=== PATIENT | male | born 1955 | race Caucasian/White ===

== ENCOUNTER → 2016-08-23 | Outpatient (CLI) | payer BC ==
--- NOTE | 2016-08-23 08:56 | US ---
EXAMINATION TYPE: US prostate transrectal DATE OF EXAM: 08/23/2016 COMPARISON: Prior prostate ultrasound July 12, 2009 CLINICAL HISTORY: R97.20 elevated PSA. This examination was performed using the transrectal probe. EXAM MEASUREMENTS: Gland Size: 4.4 x 2.5 x 5.3cm Volume: 29.9 Predicted PSA: 4.6 Actual PSA (if available):3.6 No evident mass, normal appearing prostate. Seminal vesicles are felt within normal limits on initial images. Prostate gland is upper limits of n ormal in size on current study much less prominent in size versus prior exam. Prostate gland is overa ll heterogeneous in appearance without hypoechoic nodule identified. IMPRESSION: Prostate gland is upper limits of normal in size and significantly smaller versus prior study, it remains heterogeneous in appearance without discrete nodule identified.
== END | disposition home or self-care (01) ==
LOC: RADUSMAIN 08:10
PROVIDERS: ATTEND Nurse Practitioner Family
DX: R97.20 Elevated prostate specific antigen [PSA] (principal)
CPT/HCPCS: 76872

== ENCOUNTER → 2017-03-14 | Outpatient (CLI) | payer BC ==
--- NOTE | 2017-03-14 09:54 | US ---
EXAMINATION TYPE: US prostate transrectal DATE OF EXAM: 03/14/2017 COMPARISON: US 08/23/2016 CLINICAL HISTORY: R97.20 Elevated PSA. This examination was performed using the transrectal probe. EXAM MEASUREMENTS: Gland Size: 5.7 x 2.7 x 5.4cm Volume: 42.6 Predicted PSA: 5.1 Actual PSA (if available):4.6 No masses seen. No suspicious lesions identified. Significant interval glandular enlargement identifi ed. Seminal vesicles are symmetric. IMPRESSION: No suspicious lesions identified. Significant interval glandular enlargement identified Predicted PSA = volume x 0.12 ng/ml Calculated Volume = 0.5236 x L x W x H
== END | disposition home or self-care (01) ==
LOC: RADUSMAIN 07:57
PROVIDERS: ATTEND Family Medicine
DX: R59.0 Localized enlarged lymph nodes (principal)
CPT/HCPCS: 76872

== ENCOUNTER → 2017-05-08 | Outpatient (CLI) | payer BC ==
--- NOTE | 2017-05-09 17:12 | ECHOF ---
Referral Reason:R01.1 CARDIAC MURMUR MEASUREMENTS -------- HEIGHT: 185.4 cm WEIGHT: 116.1 kg BP: 164/96 RVIDd: 3.4 cm (< 3.3) IVSd: 1.1 cm (0.6 - 1.1) LVIDd: 4.2 cm (3.9 - 5.3) LVPWd: 1.3 cm (0.6 - 1.1) IVSs: 1.6 cm LVIDs: 2.4 cm LVPWs: 1.5 cm LAESV Index (A-L): 15.79 ml/m Ao Diam: 2.6 cm (2.0 - 3.7) AV Cusp: 1.5 cm (1.5 - 2.6) LA Diam: 2.7 cm (2.7 - 3.8) MV EXCURSION: 19.436 mm (> 18.000) MV EF SLOPE: 53 mm/s (70 - 150) EPSS: 0.2 cm MV E Marquis: 0.76 m/s MV DecT: 346 ms MV A Marquis: 0.92 m/s MV E/A Ratio: 0.83 AV maxP.45 mmHg AV meanP.79 mmHg RAP: 5.00 mmHg RVSP: 19.42 mmHg FINDINGS -------- Sinus rhythm. This was a technically adequate study. The left ventricular size is normal. There is mild concentric left ventricular hypertrophy. Overa ll left ventricular systolic function is normal with, an EF between 55 - 60 %. The right ventricle is mildly enlarged. Normal LA size by volume 22+/-6 ml/m2. The right atrium is normal in size. There is mild aortic valve sclerosis. There is no evidence of aortic regurgitation. There is no e vidence of aortic stenosis. The mitral valve leaflets are mildly thickened. There is trace to mild mitral regurgitation. Mild tricuspid regurgitation present. Right ventricular systolic pressure is normal at < 35 mmHg. There is no evidence of pulmonary hypertension. Trace/mild (physiologic) pulmonic regurgitation. The aortic root size is normal. Normal inferior vena cava with normal inspiratory collapse consistent with estimated right atrial pre ssure of 5 mmHg. There is a small pericardial effusion is located near the right ventricle. CONCLUSIONS -------- 1. Sinus rhythm. 2. This was a technically adequate study. 3. The left ventricular size is normal. 4. There is mild concentric left ventricular hypertrophy. 5. Overall left ventricular systolic function is normal with, an EF between 55 - 60 %. 6. The right ventricle is mildly enlarged. 7. Normal LA size by volume 22+/-6 ml/m2. 8. There is mild aortic valve sclerosis. 9. The mitral valve leaflets are mildly thickened. 10. There is trace to mild mitral regurgitation. 11. Mild tricuspid regurgitation present. 12. Right ventricular systolic pressure is normal at < 35 mmHg. 13. There is no evidence of pulmonary hypertension. 14. Trace/mild (physiologic) pulmonic regurgitation. 15. The aortic root size is normal. 16. There is a small pericardial effusion is located near the right ventricle. AIR EXPORT LOGISTICS MANAGER: Daniel Aguilera RDCS
== END | disposition home or self-care (01) ==
LOC: RADECHMAIN 15:49
PROVIDERS: ATTEND Family Medicine
DX: I07.1 Rheumatic tricuspid insufficiency (principal); I31.3 Pericardial effusion (noninflammatory); I34.8 Other nonrheumatic mitral valve disorders; R01.1 Cardiac murmur, unspecified
CPT/HCPCS: 93306

== ENCOUNTER 2018-03-11 06:55 | Day surgery (SDC) | payer BC, MEDICARE ==
[2018-03-06 13:37] VITALS: BMI 34.0
[~2018-03-11 06:55] MED LIST: LACTATED RINGERS 1,000 ML IV SCH
[2018-03-11 07:22] VITALS: TEMP 97.7
[2018-03-11] MEDS ORDERED: LACTATED RINGERS 1,000 ML IV ONE (07:23)
[2018-03-11 07:28] LABS: Glucose,Whole Blood 142 mg/dL (75-99)
[2018-03-11] MEDS ORDERED: PROPOFOL 10 MG/ML 20 ML VIAL IV ONE (07:57)
--- NOTE | 2018-03-11 08:32 | P.PCN ---
Date of Procedure: 03/11/18 Procedure(s) Performed: Procedure: Colonoscopy and biopsy. Preoperative diagnosis: Screening for neoplasia, patient has history of polyps. Postoperative diagnosis: 1. Few isolated aphthous ulcers in the distal sigmoid of uncertain clinical significance biopsied. 2. Less than ideal preparation, otherwise, exam to the cecum within normal limits. Preparation: HalfLytely prep. Sedation: Was provided by anesthesia. Brief clinical history: The patient is a 63-year-old male who is scheduled for this evaluation because of history of polyps. His last exam was in August 2012 and that was within normal limits. The patient denied any abdominal complaints , bleeding or anemia. Procedure: With the patient on his left lateral decubitus position and after informed consent and adequate sedation, the perianal area was inspected and it did not show any fissures or fistulas. There were no masses felt on digital rectal examination. The Olympus CFH 190L video colonoscope was then inserted in the rectum in the usual fashion and advanced to the cecum. Unfortunately, the preparation was less than ideal and there was thick fecal secretions and fecal debris that could not be washed totally. No obvious polyps or tumors were seen. The mucosa appeared healthy. There were few isolated aphthous ulcers in the distal sigmoid of uncertain clinical significance. Couple of those were biopsied. I then retroflexed the endoscope in the rectum before the endoscope was withdrawn. The patient tolerated the procedure well. Plan: The patient was reassured. Will await pathology results. I anticipate repeating this exam in 5 years or sooner depending on his course and biopsy results. He will follow up with you as planned.
[2018-03-11 08:35] VITALS: RESP 16
[2018-03-11 08:59] VITALS: BP 128/86; PULSE 78
== END 2018-03-11 09:14 | disposition home or self-care (01) ==
LOC: ORWHC2ENDO 06:55
DX: Z12.11 Encounter for screening for malignant neoplasm of colon (principal); D12.5 Benign neoplasm of sigmoid colon; I10 Essential (primary) hypertension; E78.5 Hyperlipidemia, unspecified; K12.0 Recurrent oral aphthae; E11.9 Type 2 diabetes mellitus without complications; N40.0 Benign prostatic hyperplasia without lower urinary tract symptoms; Z79.84 Long term (current) use of oral hypoglycemic drugs; Z79.899 Other long term (current) drug therapy; Z86.010 Personal history of colon polyps
CPT/HCPCS: 88305; 45380; J2704

== ENCOUNTER → 2018-11-05 | Outpatient (CLI) | payer MEDICARE ==
--- NOTE | 2018-11-05 09:24 | CT ---
EXAMINATION TYPE: CT sinus wo con DATE OF EXAM: 11/05/2018 COMPARISON: None HISTORY: chronic sinusitis/headaches CT DLP: 660.8 mGycm. Automated Exposure Control for Dose Reduction was Utilized. TECHNIQUE: CT scan of the sinuses is performed without contrast, axial images are obtained, coronal r eformatted images are also reviewed. FINDINGS: The paranasal sinuses including the frontal, ethmoid, sphenoid, and maxillary sinuses bila terally are well-aerated very mild mucosal thickening involving the ethmoid air cells and a small muc ous retention cyst or polyp involving the left maxillary sinus. Postsurgical changes are noted. There is a moderate size abhishek bullosa on the left and a tiny right-sided abhishek bullosa.. The ostium of the maxillary sinus postsurgical is patent bilaterally on the coronal images. Visualized portion of mastoid air cells show no abnormal opacification. The globes are intact bilate rally. IMPRESSION: 1. Postsurgical changes with minimal changes of chronic sinusitis.
== END | disposition home or self-care (01) ==
LOC: RADCTMAIN 07:58
PROVIDERS: ATTEND Otolaryngology
DX: J32.9 Chronic sinusitis, unspecified (principal); Z98.890 Other specified postprocedural states
CPT/HCPCS: 70486

== ENCOUNTER → 2018-12-05 | Outpatient (CLI) | payer MEDICARE | END | disposition home or self-care (01) | LOC: LABPAT 11:27 | PROVIDERS: ATTEND Orthopaedic Surgery | DX: Z01.812 Encounter for preprocedural laboratory examination (principal) | CPT/HCPCS: 87070 ==

== ENCOUNTER → 2018-12-13 | Outpatient (CLI) | payer MEDICARE | END | disposition home or self-care (01) | LOC: LABPAT 12:08 | PROVIDERS: ATTEND Orthopaedic Surgery | DX: Z01.812 Encounter for preprocedural laboratory examination (principal); M17.11 Unilateral primary osteoarthritis, right knee; Z79.01 Long term (current) use of anticoagulants | CPT/HCPCS: 36415; 85730 ==

== ENCOUNTER 2018-12-23 07:52 | Day surgery (SDC) | payer MEDICARE ==
[~2018-12-23 07:52] MED LIST changes: +ACETAMINOPHEN TAB 500 MG TAB PO ONE; +GABAPENTIN 300 MG CAP PO ONE; +HYDROmorphone 0.5 MG/0.5 ML SYRINGE IVP PRN; -LACTATED RINGERS 1,000 ML IV SCH; +LIDOCAINE 1% 20 ML VIAL (10MG/ML) FOR IV START INTRADERMA PRN; +MELOXICAM 7.5 MG TAB PO ONE; +ONDANSETRON 4 MG/2 ML VIAL IVP ONE; +ROPIVACAINE 246.25 MG, EPINEPHrine 0.5 MG, KETOROLAC 30 MG, cloNIDine HCL/PF 80 MCG, WA... MISCELLANE ONE; +TRANEXAMIC ACID 1,000 MG in SODIUM CHLORIDE 0.9% 100 ML IVPB ONE
[2018-12-23 08:31] LABS: Glucose,Whole Blood 141 mg/dL (75-99)
[2018-12-23] MEDS: LACTATED RINGERS 1,000 ML IV SCH (08:31)
[2018-12-23] MEDS ORDERED: ONDANSETRON 4 MG/2 ML VIAL IVP ONE (08:45)
[2018-12-23] MEDS ORDERED: ONDANSETRON 4 MG/2 ML VIAL IVP PRN (08:49)
[2018-12-23] MEDS ORDERED: hydrOXYzine PAMOATE 25 MG CAP PO PRN (08:49)
[2018-12-23] MEDS ORDERED: NALOXONE 0.4 MG/ML 1 ML VIAL IV PRN (08:49)
[2018-12-23] MEDS ORDERED: HYDROcodone/APAP 5-325MG 1 EACH TAB PO PRN (08:49)
[2018-12-23] MEDS ORDERED: NA PHOS,M-B/NA PHOS,DI-BA 133 ML ENEMA RECTAL PRN (08:49)
[2018-12-23] MEDS ORDERED: DIAZEPAM 5 MG TAB PO PRN (08:49)
[2018-12-23] MEDS ORDERED: HYDROmorphone 0.5 MG/0.5 ML SYRINGE IVP PRN ×2 (08:49)
[2018-12-23] MEDS ORDERED: MAGNESIUM HYDROXIDE 2,400 MG/10 ML CUP PO PRN (08:49)
[2018-12-23] MEDS ORDERED: BISACODYL 10 MG SUPP RECTAL PRN (08:49)
[2018-12-23] MEDS ORDERED: MIDAZOLAM 2 MG/2 ML VIAL IV ONE (09:00)
[2018-12-23] MEDS ORDERED: fentaNYL (PF) 50 MCG/ML 2 ML AMP IV ONE (09:02)
[2018-12-23] MEDS ORDERED: SODIUM CHLORIDE 0.9% 100 ML BAG ONE (09:14)
[2018-12-23] MEDS ORDERED: fentaNYL (PF) 50 MCG/ML 2 ML AMP ONE (09:14)
[2018-12-23] MEDS ORDERED: MIDAZOLAM 2 MG/2 ML VIAL ONE (09:14)
[2018-12-23] MEDS ORDERED: PROPOFOL 10 MG/ML 20 ML VIAL IV ONE (09:14)
[2018-12-23] MEDS ORDERED: PHENYLEPHRINE-0.9% NACL SYG 1 MG/10 ML SYRINGE ONE (09:14)
[2018-12-23] MEDS ORDERED: TRANEXAMIC ACID 1,000 MG/10 ML VIAL ONE (09:14)
[2018-12-23] MEDS ORDERED: ceFAZolin 3,000 MG in SODIUM CHLORIDE 0.9% IRRIGATIO 3,000 ML IRRIGATION ONE (09:16)
--- NOTE | 2018-12-23 09:33 | P.ANPRN ---
Procedure Note - Anesthesia - Nerve Block Performed Right Adductor Canal Infusion Time Out Performed: Yes Date of Procedure: 12/23/18 Procedure Start Time: 09:00 Procedure Stop Time: 09:11 Location of Patient Procedure: PreOp Indication: Acute Post-Operative Pain, Requested by Surgeon Specifically requested for management of pain by DrAlyssa: Ziggy Sykes Sedation Type: Sedate with meaningful contact maintained Preparation: Sterile Prep, Sterile Dressing Position: Supine Catheter Depth at Skin (cm): 6 Catheter: Indwelling Needle Types: Pajunk Needle Gauge: 20 Ultrasound used to visualize needle placement: Yes Ultrasound used to observe medication spread: Yes Injectate: 0.5% Ropivacaine (see comment for volume) (30 ml) Blood Aspirated: No Pain Paresthesia on Injection Noted: No Resistance on Injection: Normal Image Stored and Saved: Yes Events: Uneventful and Well Tolerated
[2018-12-23] MEDS ORDERED: LACTATED RINGERS 1,000 ML IV ONE (09:44)
--- NOTE | 2018-12-23 10:39 | P.OP ---
Date of Procedure: 12/23/18 Preoperative Diagnosis: Severe osteoarthritis right knee Postoperative Diagnosis: Severe osteoarthritis right knee Procedure(s) Performed: Right total knee arthroplasty utilizing visionaire patient specific guides Implants: Khan and Nephew Journey II CR Oxinium cruciate retaining femoral component size 6, right Khan [employer] Nephew Journey right nonporous tibial baseplate size 5 Khan [employer] Nephew Journey II, XLPE CR articular insert, size 9 mm, Size 5-6 right Khan [employer] Nephew Journey BCS resurfacing oval patellar component, 32 mm All components were cemented using Palacos R bone cement. Visionaire patient specific guides The articulation is Oxinium on polyethylene. Anesthesia: spinal Surgeon: Ziggy Sykes [facility] Physical Therapist #1: Corinne Currie Estimated Blood Loss (ml): 25 Pathology: other (Bone and cartilage) Condition: stable Disposition: PACU Indications for Procedure: After failure of conservative treatment we discussed the surgical and nonsurgical treatment options at length. Patient wishes to proceed with a total knee arthroplasty. Complications specific to this procedure were discussed at length, including but not limited to infection, bleeding, stiffness, and nerve injury. Patient is aware of all these complications and informed consent was obtained Operative Findings: The operative findings are consistent with severe osteoarthritis of the right knee Description of Procedure: Patient was seen in the preoperative area consent was reviewed and operative site was marked with a skin marker. An adductor canal pain catheter was placed by anesthesia in the preoperative area. Patient was then brought to the operating room and given preoperative antibiotics intravenously. A spinal anesthetic was administered by the anesthesia department. A tourniquet was placed on the upper thigh and the lower extremity was prepped and draped in usual sterile fashion. A gram of transexamic acid was given. A universal timeout was then performed which confirmed the patient's name, surgical site, ALLERGIES, and consent. The lower extremity was then exsanguinated and tourniquet was inflated to 250 mmHg. A standard and anterior midline approach to the knee was performed. The skin and subcutaneous tissue was dissected down to the patellar tendon. A medial parapatellar arthrotomy was then performed. The knee was then extended, the patellar was everted, and the knee was again flexed. Anterior horns of both menisci were excised, and a release was performed to the posterior medial aspect of the knee. On gross visual inspection, there was complete loss of articular cartilage in the medial and patellofemoral joint spaces. There was also significant cartilage damage in the lateral compartment. There were multiple periarticular osteophytes. The patient specific guide was placed on the distal femur, and pinned in place. Using the patient specific guide, the distal femoral cut was performed. The cutting block was then removed and the cut was checked for flatness. The appropriate 5-in-1 cutting block was then pinned in place through the holes that were drilled through the patient specific guide. The anterior condyles were cut without notching. The posterior and chamfer cuts were performed while protecting the collateral ligaments. The cutting block was then removed. Attention was then directed to the tibia. The remaining ACL was removed with a Ronguer, and the tibia was then gently subluxed forward with a large bent knee retractor. Any remaining menisci was excised. The posterior lateral corner was cauterized in order to cauterize the lateral geniculate artery. The patient specific guide for the tibia was then placed and was held in place with pins. Pinholes were then placed for rotation of the tibial component as well. Proximal tibia was then cut and sized. Next trials were then placed with the appropriate-sized insert. The knee was able to fully extend and flex to 130 and was stable throughout all range of motion. The knee was then extended, patella everted. Patella was then measured, and then using an osteotomy guide, the patella was cut at the appropriate level. The patella was then measured and drilled and the patella trial was then placed. The knee was then taken through range of motion with the patella trial and the patella tracked normally. The knee was then extended patella trial was then removed and the patella was everted. Knee was then flexed and lug holes were drilled through the femoral trial and the femoral trial was then removed. The tibial was then exposed, and the tibial broach guide was then pinned in place after it was set for the appropriate rotation to allow for the most coverage without overhang. The tibia was then reamed and broached. The cut surfaces of bone were then irrigated with pulsatile lavage. The posterior structures were injected with the ropivacaine solution. The knee was also irrigated with Irrisept solution. The components were then opened, the cement was mixed, and the components were then cemented in place. The cement was allowed to harden with the knee in full extension. While the cement was hardening, the remaining soft tissues were then injected with a ropivacaine solution, which consisted of 246.25 mg of ropivacaine, 0.5 mg of epinephrine, 30 mg of Toradol, 80 g of clonidine, and 48.45 mL of sterile water, for a total of 100 mL of fluid injected. After the cemented hardened. The tourniquet was released, and hemostasis was obtained. A second gram of transexamic acid was given. The knee was again irrigated. The knee was again taken through range of motion and found to be stable throughout all range of motion of 0-130, and the patella tracked normally. The fascia was then closed with #2 strata fix suture. The subcutaneous tissue was closed with 3-0 Vicryl and 3-0 strata fix. Dermabond glue was used for the skin and placed with the knee in flexion. The patient was placed in a sterile silver dressing. Patient was then transferred to recovery room in stable condition. The inside sales assistant ALEJANDRA Pascual was required due the complexity surgery and the need for a skilled surgical services director. She assisted in positioning, draping, retraction, and closure of the wound.
[2018-12-23] MEDS ORDERED: ROPIVACAINE 0.2%-NS ON-Q PUMP 1,090 MG, EMPTY PAIN BALL 1 EACH MISCELLANE PRN ×2 (11:23→11:35)
--- NOTE | 2018-12-23 12:00 | XR ---
EXAMINATION TYPE: XR knee limited RT DATE OF EXAM: 12/23/2018 COMPARISON: NONE HISTORY: 63-year-old male evaluation for postoperative abnormality and alignment TECHNIQUE: 2 views FINDINGS: Images show placement of right total knee arthroplasty. Both distal femoral and proximal tibial compo nents of the prosthesis are well seated without periprosthetic fracture. Scattered soft tissue air as well as intra-articular air and joint fluid compatible with recent operation. Alignment grossly kristi omic. IMPRESSION: Uncomplicated postoperative appearance right total knee arthroplasty.
[2018-12-23] MEDS: MELOXICAM 7.5 MG TAB PO SCH (12:02)
[2018-12-23 12:11] LABS: Glucose,Whole Blood 126 mg/dL (75-99)
[2018-12-23] MEDS: SODIUM CHLORIDE 0.9% 1,000 ML IV SCH (14:07)
[2018-12-23 14:15] VITALS: BMI 33.6
[2018-12-23 16:21] LABS: Glucose,Whole Blood 128 mg/dL (75-99)
[2018-12-23] MEDS: FINASTERIDE 5 MG TAB PO SCH (16:43)
[2018-12-23] MEDS: ATORVASTATIN 80 MG TAB PO SCH (16:43)
[2018-12-23] MEDS: ASPIRIN 325 MG TAB PO SCH (20:25)
[2018-12-23] MEDS: metFORMIN 500 MG TAB PO SCH (20:26)
[2018-12-23 20:27] LABS: Glucose,Whole Blood 110 mg/dL (75-99)
[2018-12-23] MEDS ORDERED: SENNOSIDES-DOCUSATE SODIUM 1 EACH TAB PO SCH (21:00)
--- NOTE | 2018-12-23 22:08 | P.CONS ---
History of Present Illness - Reason for Consult Consult date: 12/23/18 Medical management Requesting physician: Ziggy Sykes - Chief Complaint Right knee surgery - History of Present Illness Consultation: This is a pleasant 63-year-old patient of Dr. Oden. Chronic stable medical conditions include diabetes, hypertension, hyperlipidemia, osteoarthritis. Does have obstructive sleep apnea does not use a device. Patient has undergone right total knee arthroplasty. Some pain is present. No nausea vomiting. No chest pain no shortness rate. Did tolerate a light supper. Laying in bed. Review of systems: GEN.: None EYES: None HEENT: None NECK: None RESPIRATORY: None CARDIOVASCULAR: None GASTROINTESTINAL: None GENITOURINARY: None MUSCULOSKELETAL: Pain. Joints LYMPHATICS: None HEMATOLOGICAL: None PSYCHIATRY: None NEUROLOGICAL: None Social history: Does not smoke. Alcohol occasionally. . 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 Talked science Physical examination: VITAL SIGNS: [98.1, 81, 18, 133/81, and 6% room air] GENERAL: [BMI 22.7, laying in bed comfortable]. EYES: [Pupils equal. Conjunctiva tereso]l. HEENT: [External appearance of nose and ears normal, oral cavity grossly normal]. NECK: [JVD not raised; masses not palpable]. HEART: [First and second heart sounds are normal; no edema]. LUNGS:[ Respiratory rate normal; clear to auscultation]. ABDOMEN: [Soft, nontender, liver spleen not palpable, no masses palpable]. PSYCH: [Alert and oriented x3; mood and affect tereso]l. NEUROLOGICAL: [Cranial nerves grossly intact; no facial asymmetry, power and sensation grossly intact]. LYMPHATICS: [No lymph nodes palpable in the axilla and neck] MUSCULOSKELETAL: Right knee and a dressing, evidence of OA especially in the hands. INVESTIGATIONS, reviewed in the clinical context: Height checks-141, 126, 128. Assessment: -Right total knee arthroplasty -Primary osteoarthritis -Essential hypertension -Hyperlipidemia -Diabetes mellitus type 2 -Obstructive sleep apnea does not use a device -Obesity BMI 32.7 Plan: -Home medications resumed. Pain medication control. Accu-Cheks will be followed. Patient is on aspirin 325 mg twice a day for Dr. Sykes. Care was discussed with the patient question were answered. Thank you Dr. Sykes Past Medical History Past Medical History: Cancer, Diabetes Mellitus, Hyperlipidemia, Hypertension, Osteoarthritis (OA), Prostate Disorder, Sleep Apnea/CPAP/BIPAP Additional Past Medical History / Comment(s): Hx skin cancer, melanoma. No tx for Sleep Apnea. Seasonal allergies History of Any Multi-Drug Resistant Organisms: None Reported Past Surgical History: Orthopedic Surgery Additional Past Surgical History / Comment(s): SURFACE MELANOMA REMOVED FROM LT LEG. COLONOSCOPY. SINUS SX. 2 LT KNEE SCOPES, 1 RT KNEE SCOPE Past Anesthesia/Blood Transfusion Reactions: No Reported Reaction Past Psychological History: No Psychological Hx Reported Smoking Status: Never smoker Past Alcohol Use History: Occasional Past Drug Use History: None Reported - Past Family History Father Family Medical History: Cancer Additional Family Medical History / Comment(s): Skin CA, rare fungal type Medications and Allergies Home Medications Medication Instructions Recorded Confirmed Type Atorvastatin [Lipitor] 80 mg PO DAILY 10/18/17 12/17/18 History Finasteride [Proscar] 5 mg PO DAILY 10/18/17 12/17/18 History Montelukast [Singulair] 10 mg PO DAILY 10/18/17 12/23/18 History amLODIPine [Norvasc] 5 mg PO DAILY 10/18/17 12/23/18 History metFORMIN HCL [metFORMIN HCL ER] 1,000 mg PO BID 10/18/17 12/17/18 History Cholecalciferol [Vitamin D3 (25 1,250 unit PO TID 12/17/18 12/17/18 History Mcg = 1000 Iu)] Cinnamon Bark [Cinnamon] 1,000 mg PO DAILY 12/17/18 12/17/18 History L.acidoph,Paracasei, B.lactis 1 each PO DAILY 12/17/18 12/17/18 History [Probiotic] Multivitamins, Thera [Multivitamin 1 tab PO DAILY 12/17/18 12/17/18 History (formulary)] Leona-3 Fatty Acids/Fish Oil [Fish 1 each PO DAILY 12/17/18 12/17/18 History Oil 1,000 mg Softgel] Omeprazole Magnesium [PriLOSEC OTC] 20 mg PO DAILY 12/17/18 12/23/18 History Telmisartan/Hydrochlorothiazid 1 each PO DAILY 12/17/18 12/23/18 History [Telmisartan-Hctz 80-25 mg Tab] Allergies Allergy/AdvReac Type Severity Reaction Status Date / Time nickel Allergy skin Verified 12/23/18 08:14 irritation paraben Allergy Rash/Hives Verified 12/23/18 08:14 Physical Exam Vitals: Vital Signs Temp Pulse Resp BP Pulse Ox 12/23/18 19:45 98.4 F 83 18 127/82 94 L 12/23/18 14:41 98.1 F 81 18 133/81 96 12/23/18 13:15 76 16 118/79 98 12/23/18 12:41 71 16 127/84 97 12/23/18 12:03 70 16 127/78 98 12/23/18 11:45 72 16 124/83 96 12/23/18 11:30 72 16 109/75 97 12/23/18 11:18 97.7 F 75 18 113/78 94 L 12/23/18 09:10 82 16 130/74 98 12/23/18 08:04 984 F H 86 16 141/75 97 Intake and Output 12/23/18 12/23/18 12/23/18 06:59 14:59 22:59 Intake Total 1851 245 Output Total 25 Balance 1826 245 Intake: IV 1851 Intake, IV Titration 245 Amount Sodium Chloride 0.9% 1, 245 000 ml @ 70 mls/hr IV . [id number] [facility] Rx#:[id number] Output: Estimated Blood Loss 25 Other: Voiding Method Toilet # Voids 0 2 # Bowel Movements 0 Results Labs: Abnormal Lab Results - Last 24 Hours (Table) 12/23/18 12/23/18 12/23/18 Range/Units 08:29 12:10 16:20 POC Glucose (mg/dL) 141 H 126 H 128 H (75-99) mg/dL 12/23/18 Range/Units 20:24 POC Glucose (mg/dL) 110 H (75-99) mg/dL
[2018-12-24] MEDS: HYDROmorphone 0.5 MG/0.5 ML SYRINGE IVP PRN ×2 (00:32→05:59)
[2018-12-24] MEDS: SODIUM CHLORIDE 0.9% 1,000 ML IV SCH (00:37)
[2018-12-24] MEDS: HYDROcodone/APAP 5-325MG 1 EACH TAB PO PRN ×2 (02:06→07:29)
[2018-12-24] MEDS: LACTATED RINGERS 1,000 ML IV SCH (03:37)
[2018-12-24 07:08] LABS: Glucose,Whole Blood 151 mg/dL (75-99)
[2018-12-24] MEDS: MELOXICAM 7.5 MG TAB PO SCH (07:27)
[2018-12-24] MEDS: ASPIRIN 325 MG TAB PO SCH (07:28)
[2018-12-24] MEDS: FINASTERIDE 5 MG TAB PO SCH (07:28)
[2018-12-24] MEDS: metFORMIN 500 MG TAB PO SCH (07:28)
[2018-12-24] MEDS: ATORVASTATIN 80 MG TAB PO SCH (07:28)
--- NOTE | 2018-12-24 07:30 | P.PN ---
Progress Note - Text Progress Note Date: 12/24/18 Status post total knee arthroplasty on the right postop day #1, abductor canal catheter day #2. Patient doing well VAS ranging from 0-2 out of 10 in severity. Patient ambulating well. Likely discharged today.
[2018-12-24 07:54] VITALS: BP 116/78; PULSE 82; RESP 16; TEMP 98.1
[2018-12-24] MEDS ORDERED: amLODIPine 5 MG TAB PO SCH (09:00)
[2018-12-24] MEDS ORDERED: MULTIVITAMINS, THERA 1 EACH TAB PO SCH (09:00)
[2018-12-24] MEDS ORDERED: HYDROCHLOROTHIAZIDE 25 MG TAB PO SCH (09:00)
[2018-12-24] MEDS ORDERED: MONTELUKAST 10 MG TAB PO SCH (09:00)
[2018-12-24] MEDS ORDERED: LOSARTAN 50 MG TAB PO SCH (09:00)
--- NOTE | 2018-12-24 09:28 | P.DS ---
Providers Expected date of discharge: 12/24/18 Attending physician: Ziggy Sykes Consults: 12/23/18 08:49 Consult Physician Routine Consulting Provider: Jared Snowden Consult Reason/Comments: medical management Do you want consulting provider notified?: Yes Primary care physician: Alex Oden - Discharge Diagnosis(es) (1) Osteoarthritis of right knee Current Visit: Yes Status: Acute (2) Status post total right knee replacement Current Visit: Yes Status: Acute Hospital Course: This is a 63-year-old male with known history of degenerative arthritis of the right knee. The patient presents for evaluation. After discussion and consideration patient elects to proceed with total knee arthroplasty. The patient is seen preoperatively by Dr. Sykes and medically cleared for surgery by their primary care physician. Patient is admitted to [facility] on 12/23/2018 for total knee arthroplasty. The procedures performed without complication or sequelae. The patient is doing well postoperatively. Labs and vital signs are stable on day of discharge. On day of discharge patient's knee incision is healing well. There is minimal erythema. There is no drainage noted at this time. There is minimal soft tissue swelling to the knee. Patient has full foot and ankle motion without difficulty or pain. Calf is soft and nontender to palpation. Neurovascular status to the right lower extremity is intact. Patient is discharged home in good condition. Opioid start talking form is reviewed and signed at patient bedside. Please see med rec for accurate list of home medications. Plan - Discharge Summary Discharge Rx Participant: No New Discharge Prescriptions: New Aspirin 325 mg PO BID #60 tab HYDROcodone/APAP 5-325MG [[place] 5-325] 1 - 2 tab PO Q6HR PRN #56 tab PRN Reason: Pain Sennosides [Senokot] 1 tab PO BID #60 tablet No Action metFORMIN HCL [metFORMIN HCL ER] 1,000 mg PO BID amLODIPine [Norvasc] 5 mg PO DAILY Montelukast [Singulair] 10 mg PO DAILY Finasteride [Proscar] 5 mg PO DAILY Atorvastatin [Lipitor] 80 mg PO DAILY [place]-3 Fatty Acids/Fish Oil [Fish Oil 1,000 mg Softgel] 1 each PO DAILY Multivitamins, Thera [Multivitamin (formulary)] 1 tab PO DAILY Omeprazole Magnesium [PriLOSEC OTC] 20 mg PO DAILY Cinnamon Bark [Cinnamon] 1,000 mg PO DAILY L.acidoph,Paracasei, B.lactis [Probiotic] 1 each PO DAILY Cholecalciferol [Vitamin D3 (25 Mcg = 1000 Iu)] 1,250 unit PO TID Telmisartan/Hydrochlorothiazid [Telmisartan-Hctz 80-25 mg Tab] 1 each PO DAILY Discharge Medication List Atorvastatin [Lipitor] 80 mg PO DAILY 10/18/17 [History] Finasteride [Proscar] 5 mg PO DAILY 10/18/17 [History] Montelukast [Singulair] 10 mg PO DAILY 10/18/17 [History] amLODIPine [Norvasc] 5 mg PO DAILY 10/18/17 [History] metFORMIN HCL [metFORMIN HCL ER] 1,000 mg PO BID 10/18/17 [History] Cholecalciferol [Vitamin D3 (25 Mcg = 1000 Iu)] 1,250 unit PO TID 12/17/18 [History] Cinnamon Bark [Cinnamon] 1,000 mg PO DAILY 12/17/18 [History] L.acidoph,Paracasei, B.lactis [Probiotic] 1 each PO DAILY 12/17/18 [History] Multivitamins, Thera [Multivitamin (formulary)] 1 tab PO DAILY 12/17/18 [History] [place]-3 Fatty Acids/Fish Oil [Fish Oil 1,000 mg Softgel] 1 each PO DAILY 12/17/18 [History] Omeprazole Magnesium [PriLOSEC OTC] 20 mg PO DAILY 12/17/18 [History] Telmisartan/Hydrochlorothiazid [Telmisartan-Hctz 80-25 mg Tab] 1 each PO DAILY 12/17/18 [History] Aspirin 325 mg PO BID #60 tab 12/24/18 [Rx] HYDROcodone/APAP 5-325MG [[place] 5-325] 1 - 2 tab PO Q6HR PRN #56 tab 12/24/18 [Rx] Sennosides [Senokot] 1 tab PO BID #60 tablet 12/24/18 [Rx] Follow up Appointment(s)/Referral(s): Alex Oden MD [Primary Care Provider] - 1 Week Ziggy Sykes DO [Doctor of Osteopathic Medicine] - 01/09/19 1:00 pm (With Corinne) Activity/Diet/Wound Care/Special Instructions: Weightbearing as tolerated with a walker. CPM 5-6h daily. Leave dressing intact. May be removed by home care nurse or by patient in 10 days. May shower with dressing on. Recommend use of compression stockings daily for at least 2 weeks during the day to help prevent swelling and blood clots. May remove at night before sleeping. Please follow up with [facility] and call with any questions or concerns, . Discharge Disposition: HOME WITH HOME HEALTH SERVICES
[2018-12-24 10:16] LABS: Basophils % (A) 1 %; Eosinophils # (A) 0.1 k/uL (0-0.7); Eosinophils % (A) 1 %; HCT 38.6 % (39.0-53.0); Lymphocytes # (A) 1.2 k/uL (1.0-4.8); Lymphocytes % (A) 12 %; MCH 30.2 pg (25.0-35.0); MCHC 33.7 g/dL (31.0-37.0); MCV 89.7 fL (80.0-100.0); Mean Platelet Volume 6.6; Monocytes # (A) 0.7 k/uL (0-1.0); Monocytes % (A) 7 %; Neutrophils # (A) 7.7 k/uL (1.3-7.7); Neutrophils % (A) 78 %; Platelet Count 309 k/uL (150-450); RDW 13.2 % (11.5-15.5); WBC 9.8 k/uL (3.8-10.6)
== END 2018-12-24 10:31 | disposition home health service (06) ==
LOC: OR 07:52 → 4SSUR 11:30 → OR 12-24 10:31
PROVIDERS: ATTEND Orthopaedic Surgery
DX: M17.0 Bilateral primary osteoarthritis of knee (principal); I10 Essential (primary) hypertension; E78.5 Hyperlipidemia, unspecified; K21.9 Gastro-esophageal reflux disease without esophagitis; E11.9 Type 2 diabetes mellitus without complications; Z85.820 Personal history of malignant melanoma of skin; G47.33 Obstructive sleep apnea (adult) (pediatric); E66.9 Obesity, unspecified; Z68.32 Body mass index [BMI] 32.0-32.9, adult; Z87.891 Personal history of nicotine dependence; Z83.3 Family history of diabetes mellitus; Z82.49 Family history of ischemic heart disease and other diseases of the circulatory system; Z79.84 Long term (current) use of oral hypoglycemic drugs; Z79.899 Other long term (current) drug therapy; Z91.048 Other nonmedicinal substance allergy status; Z91.09 Other allergy status, other than to drugs and biological substances
CPT/HCPCS: 64448; 76942; 85025; 73560; 27447; C1713; C1776; S0138 ×2; J2250; J0171; J0690 ×3; J2405; J3010; J1885; J2795 ×2; J2370; J2704; J0735; J1170; 88305; 88311

== ENCOUNTER → 2019-03-25 | Outpatient (CLI) | payer MEDICARE | END | disposition home or self-care (01) | LOC: LABWHC1 11:27 | PROVIDERS: ATTEND Urology | DX: R97.20 Elevated prostate specific antigen [PSA] (principal) | CPT/HCPCS: 36415; 84153 ==

== ENCOUNTER → 2019-08-04 | Outpatient (CLI) | payer MEDICARE ==
--- NOTE | 2019-08-04 11:21 | XR ---
EXAMINATION TYPE: XR chest 2V DATE OF EXAM: 08/04/2019 COMPARISON: None HISTORY: 64 year-old male shortness of breath, presurgical for prostate cancer TECHNIQUE: Frontal and lateral views FINDINGS: The heart is upper limits of normal in size. Mild elongation thoracic aorta. Mild interstitial promin ence is a chronic appearance. No consolidation or pleural effusion. IMPRESSION: Chronic appearing changes. No acute process seen.
[2019-08-04 11:29] LABS: HCT 42.8 % (39.0-53.0); HGB 13.7 gm/dL (13.0-17.5); MCH 28.8 pg (25.0-35.0); MCHC 31.9 g/dL (31.0-37.0); MCV 90.2 fL (80.0-100.0); Mean Platelet Volume 7.7; Platelet Count 315 k/uL (150-450); RBC 4.74 m/uL (4.30-5.90); RDW 13.7 % (11.5-15.5); WBC 7.1 k/uL (3.8-10.6)
[2019-08-04 11:49] LABS: African American GFR (CKD) >90 (>60 ml/min/1.73 sqM); Anion Gap 9 mmol/L; Blood Urea Nitrogen 22 mg/dL (9-20); Calcium 9.9 mg/dL (8.4-10.2); Carbon Dioxide 26 mmol/L (22-30); Chloride 103 mmol/L (98-107); Glucose 192 mg/dL (74-99); Non-African American GFR(CKD) 79 (>60 ml/min/1.73 sqM); Potassium 4.7 mmol/L (3.5-5.1); Sodium 138 mmol/L (137-145)
== END | disposition home or self-care (01) ==
LOC: LABPAT 10:24
PROVIDERS: ATTEND Urology
DX: Z01.818 Encounter for other preprocedural examination (principal); Z11.59 Encounter for screening for other viral diseases; C61 Malignant neoplasm of prostate; I10 Essential (primary) hypertension; E11.9 Type 2 diabetes mellitus without complications; R06.02 Shortness of breath
CPT/HCPCS: 80048; 85027; 71046; 36415; U0003

== ENCOUNTER 2019-08-06 11:31 | Observation (INO) | payer MEDICARE ==
--- NOTE | 2019-07-27 09:42 | P.HPIHPCON ---
History of Present Illness H&P Date: 08/06/19 Chief Complaint: Prostate cancer Mr Balderrama is 64 yo male with hx of loc 7(4+3) prostae cancer. We discussed with him the options including surgery and radiation therapy. We discussed the risk and benefits with him of each approach. I discussed with surgery the risk of urinary incontinence or erectile dysfunction, I also discussed with him risk of injury to nearby organs including but not limited bowels, rectum, bladder and blood vessels. I also discussed the risk from anesthesia with him. Which included blood clots, heart attack, stroker and even . He understood all the risk and agreed to proceed with a robotic-assisted radical prostatectomy and plevic lymph node dissection Consent for Procedure: I have explained the operation/procedure to the patient, including the risks, benefits, side effects, alternative therapies (including not receiving the proposed treatment or service), the likelihood of the patient achieving his/her goals, and potential recuperation problems for the procedure/sedation/analgesia, as well as any blood products, if indicated. I also explained to the patient the risks, benefits and side effects of the alternatives, as well as the risks related to not receiving the proposed procedure, care, treatment, or services. - Constitutional Constitutional: Denies chills, Denies fever - Cardiovascular Cardiovascular: Denies chest pain, Denies shortness of breath - Respiratory Respiratory: Denies cough, Denies 7 - Gastrointestinal Gastrointestinal: Denies abdominal pain, Denies diarrhea, Denies nausea, Denies vomiting - Genitourinary (Female) Genitourinary: Denies dysuria, Denies hematuria Past Medical History Past Medical History: Cancer, Diabetes Mellitus, Hyperlipidemia, Hypertension, Prostate Disorder Additional Past Medical History / Comment(s): hx skin cancer. 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 COLONOSCOPY. SINUS SX. 2 LT KNEE SCOPES, 1 RT KNEE SCOPE Past Anesthesia/Blood Transfusion Reactions: No Reported Reaction Past Alcohol Use History: Rare - Past Family History Father Family Medical History: Cancer Medications and Allergies Home Medications Medication Instructions Recorded Confirmed Type Atorvastatin [Lipitor] 80 mg PO DAILY 10/18/17 12/17/18 History Finasteride [Proscar] 5 mg PO DAILY 10/18/17 12/17/18 History Montelukast [Singulair] 10 mg PO DAILY 10/18/17 12/23/18 History amLODIPine [Norvasc] 5 mg PO DAILY 10/18/17 12/23/18 History metFORMIN HCL [metFORMIN HCL ER] 1,000 mg PO BID 10/18/17 12/17/18 History Cholecalciferol [Vitamin D3 (25 1,250 unit PO TID 12/17/18 12/17/18 History Mcg = 1000 Iu)] Cinnamon Bark [Cinnamon] 1,000 mg PO DAILY 12/17/18 12/17/18 History L.acidoph,Paracasei, B.lactis 1 each PO DAILY 12/17/18 12/17/18 History [Probiotic] Multivitamins, Thera [Multivitamin 1 tab PO DAILY 12/17/18 12/17/18 History (formulary)] [place]-3 Fatty Acids/Fish Oil [Fish 1 each PO DAILY 12/17/18 12/17/18 History Oil 1,000 mg Softgel] Omeprazole Magnesium [PriLOSEC OTC] 20 mg PO DAILY 12/17/18 12/23/18 History Telmisartan/Hydrochlorothiazid 1 each PO DAILY 12/17/18 12/23/18 History [Telmisartan-Hctz 80-25 mg Tab] Aspirin 325 mg PO BID #60 tab 12/24/18 Rx HYDROcodone/APAP 5-325MG [[place] 1 - 2 tab PO Q6HR PRN #56 tab 12/24/18 Rx 5-325] Sennosides [Senokot] 1 tab PO BID #60 tablet 12/24/18 Rx Allergies Allergy/AdvReac Type Severity Reaction Status Date / Time nickel Allergy skin Verified 12/23/18 08:14 irritation paraben Allergy Rash/Hives Verified 12/23/18 08:14 Surgical - Exam - General well developed, well nourished, no distress - Eyes normal ocular movement - Respiratory normal expansion, normal respiratory effort - Abdomen Abdomen: soft, non tender - Psychiatric oriented to time, oriented to person, oriented to place Assessment and Plan Assessment: 64 yo male with hx of loc 7 (4+3) prostate cancer. -OR for robotic prostatectomy and Pelvic lymph node dissection
[2019-08-04 14:31] VITALS: BMI 33.0
[~2019-08-06 11:31] MED LIST changes: -ACETAMINOPHEN TAB 500 MG TAB PO ONE; +DEXAMETHASONE SOD PHOSPHATE 10 MG/ML 1 ML VIAL IV ONE; -GABAPENTIN 300 MG CAP PO ONE; +LIDOCAINE 1% (10MG/ML) FOR IV START INTRADERMA PRN; -LIDOCAINE 1% 20 ML VIAL (10MG/ML) FOR IV START INTRADERMA PRN; -MELOXICAM 7.5 MG TAB PO ONE; -ROPIVACAINE 246.25 MG, EPINEPHrine 0.5 MG, KETOROLAC 30 MG, cloNIDine HCL/PF 80 MCG, WA... MISCELLANE ONE; -TRANEXAMIC ACID 1,000 MG in SODIUM CHLORIDE 0.9% 100 ML IVPB ONE
[2019-08-06] MEDS ORDERED: LIDOCAINE 1% (10MG/ML) FOR IV START INTRADERMA ONE (12:00)
[2019-08-06] MEDS: LACTATED RINGERS 1,000 ML IV SCH (12:00)
[2019-08-06 12:14] LABS: Glucose,Whole Blood 135 mg/dL (75-99)
[2019-08-06] MEDS ORDERED: SUCCINYLCHOLINE CHLORIDE 100 MG/5 ML SYR IV ONE (13:09)
[2019-08-06] MEDS ORDERED: LIDOCAINE 1% INJ 10MG/ML (20 ML MDV) ONE (13:09)
[2019-08-06] MEDS ORDERED: NEOSTIGMINE 1 MG/ML 10 ML VIAL ONE (13:09)
[2019-08-06] MEDS ORDERED: fentaNYL (PF) 50 MCG/ML 2 ML AMP ONE (13:09)
[2019-08-06] MEDS ORDERED: PHENYLEPHRINE-0.9% NACL SYG 1 MG/10 ML SYRINGE ONE (13:09)
[2019-08-06] MEDS ORDERED: HEPARIN SODIUM,PORCINE 5,000 UNIT/ML 1 ML VIAL SQ ONE (13:09)
[2019-08-06] MEDS ORDERED: GLYCOPYRROLATE 0.2 MG/ML 2 ML VIAL ONE (13:09)
[2019-08-06] MEDS ORDERED: ROCURONIUM BROMIDE 10 MG/ML 5 ML VIAL IV ONE (13:09)
[2019-08-06] MEDS ORDERED: PROPOFOL 10 MG/ML 20 ML VIAL IV ONE (13:09)
[2019-08-06] MEDS ORDERED: HYDROmorphone (PF) 1 MG/ML ONE (13:09)
[2019-08-06] MEDS ORDERED: MIDAZOLAM 2 MG/2 ML VIAL ONE (13:09)
[2019-08-06] MEDS ORDERED: HYDROmorphone 1 MG/ML 1 ML SYRINGE IVP PRN (13:30)
[2019-08-06] MEDS ORDERED: BUPIVACAINE (PF) 0.25% 30 ML VIAL SQ ONE ×2 (13:53→21:08)
[2019-08-06] MEDS ORDERED: LACTATED RINGERS 1,000 ML IV ONE ×3 (15:40→21:35)
[2019-08-06] MEDS ORDERED: ceFAZolin 1,000 MG VIAL IVPB ONE (18:16)
[2019-08-06 22:41] LABS: Glucose,Whole Blood 208 mg/dL (75-99)
[2019-08-06] MEDS ORDERED: INSULIN ASPART (NovoLOG) 100 UNIT/ML VIAL SQ ONE (22:42)
[2019-08-06] MEDS: OXYBUTYNIN CHLORIDE 5 MG TAB PO SCH (23:59)
[2019-08-07] MEDS: D5-0.45% NACL WITH KCL 20MEQ/L 1,000 ML IV SCH ×4 (01:08→23:45)
[2019-08-07] MEDS: HEPARIN SODIUM,PORCINE 5,000 UNIT/ML 1 ML VIAL SQ SCH ×3 (01:08→16:14)
[2019-08-07] MEDS: KETOROLAC 30 MG/ML 1 ML VIAL IVP SCH ×5 (01:34→23:46)
[2019-08-07 06:20] LABS: Basophils % (A) 0 %; Eosinophils % (A) 0 %; HCT 34.7 % (39.0-53.0); HGB 12.2 gm/dL (13.0-17.5); Lymphocytes # (A) 0.9 k/uL (1.0-4.8); Lymphocytes % (A) 7 %; MCH 30.6 pg (25.0-35.0); MCHC 35.1 g/dL (31.0-37.0); MCV 87.1 fL (80.0-100.0); Monocytes # (A) 0.8 k/uL (0-1.0); Monocytes % (A) 6 %; Neutrophils # (A) 11.8 k/uL (1.3-7.7); Neutrophils % (A) 86 %; Platelet Count 318 k/uL (150-450); RBC 3.98 m/uL (4.30-5.90); RDW 13.7 % (11.5-15.5); WBC 13.7 k/uL (3.8-10.6)
[2019-08-07 06:26] LABS: Calcium 8.8 mg/dL (8.4-10.2); Potassium 4.5 mmol/L (3.5-5.1)
[2019-08-07] MEDS: ATORVASTATIN 80 MG TAB PO SCH (07:56)
[2019-08-07] MEDS: MONTELUKAST 10 MG TAB PO SCH (07:56)
[2019-08-07] MEDS: metFORMIN 500 MG TAB PO SCH ×2 (07:57→20:37)
[2019-08-07] MEDS: amLODIPine 10 MG TAB PO SCH (07:57)
[2019-08-07] MEDS: OXYBUTYNIN CHLORIDE 5 MG TAB PO SCH ×3 (07:57→20:37)
[2019-08-07] MEDS: LORATADINE 10 MG TAB PO SCH (07:57)
[2019-08-07 19:20] LABS: Potassium 4.4 mmol/L (3.5-5.1)
[2019-08-07 20:48] LABS: Basophils % (A) 0 %; Eosinophils # (A) 0.1 k/uL (0-0.7); Eosinophils % (A) 1 %; HCT 36.6 % (39.0-53.0); HGB 12.1 gm/dL (13.0-17.5); Lymphocytes % (A) 10 %; MCH 30.2 pg (25.0-35.0); MCHC 33.1 g/dL (31.0-37.0); MCV 91.4 fL (80.0-100.0); Monocytes # (A) 0.6 k/uL (0-1.0); Monocytes % (A) 6 %; Neutrophils # (A) 8.7 k/uL (1.3-7.7); Neutrophils % (A) 82 %; Platelet Count 282 k/uL (150-450); RDW 13.9 % (11.5-15.5); WBC 10.7 k/uL (3.8-10.6)
--- NOTE | 2019-08-07 21:50 | P.OP ---
Date of Procedure: 08/06/19 Preoperative Diagnosis: Prostate cancer Postoperative Diagnosis: prostate cancer Procedure(s) Performed: Robotic asssisted laproscopic prostatectomy and pelvic lymph node dissection Implants: none Anesthesia: MARYA Surgeon: Adolfo Vaca Bottling Room Worker #1: Tj Rodriguez Estimated Blood Loss (ml): 250 Pathology: other (prostate, bilateral seminal vesicle, bilateral pelvic lymp node, median lobe margin) Condition: stable Disposition: PACU Indications for Procedure: Mr Balderrama is 64 yo male with hx of loc 7(4+3) prostate cancer. We discussed with him the options including surgery and radiation therapy. We discussed the risk and benefits with him of each approach. I discussed with surgery the risk of urinary incontinence or erectile dysfunction, I also discussed with him risk of injury to nearby organs including but not limited bowels, rectum, bladder and blood vessels. I also discussed the risk from anesthesia with him. Which included blood clots, heart attack, stroker and even . He understood all the risk and agreed to proceed with a robotic-assisted radical prostatectomy and plevic lymph node dissection Operative Findings: Significant amount of pelvic fat, which made the dissection very challenging, deep and narrowed pelvis making the anastomsis very challenging. Significant amount of fat surrounding the bladder Description of Procedure: After preoperative antibiotics were started, the patient was taken to the operating room. Anesthesia was induced and the patient was placed in a low lithitomy position, with adequate padding of the pressure points, shoulders, back, legs and arms. He was then prepped and draped in the standard fashion. A critical pause was performed using two patient identifiers. A 16F cuhng catheter was placed to gravity drainage. A pneumo-peritoneum was created with placement of a Veress needle to 20 mm Hg without complication, and a 8 Fr trocar was placed above the umbillicus. Under direct vision a 8mm robotic ports was placed lateral to each rectus slightly below the camera port. The left iliac fossa 8mm port was placed. The right miller head assistant wet process right iliac fossa 12mm port and right paramedian 5mm portwere placed. After the patient was placed in the trendelenberg position, the robot was then docked to the 8mm robotic ports and then each robotic arm and tower was checked in relation to the patient's legs and hands to avoid inadvertent compression. The peritoneal cavity was inspected. there was adhesions along the LLQ which was taken down. An inverted U-shaped incision began laterally to the left medial umbilical ligament and extended high across the midline to the right umbilical ligament. The limbs of the "U" extended to the level of the vasa on both sides. We next developed the preperitoneal space and the space of Retzius. Of note there was significant amount of fat around the bladder which made the dissection more difficult Cautery was used to dissected the bladder away from the prostate. After the anterior bladder neck was incised and the bladder entered the the posterior bladder neck was exposed and the ureteral orifces identified. The posterior bladder neck was then incised and dissected away from the prostate. After the bladder was mobilized, additional hard tissue was noticed along the posterior bladder neck, this was concerning for median lobe. This was resected and sent as median lobe margin. It was ensured that the ureteral orfices were away from the resection. The vas and the seminal vesicles were now exposed and dissected to their insertions into the prostate and were not spared. The posterior layer of the Denonvillier's fascia was incised and the plane between prostate and perirectal fat. Each lateral pedicle was controlled with clips and cautery for hemostasis. Nerve preservation was performed standard nerve sparing was performed on the left and VEIL was performed on the right. The apical dissection was challenging given patient narrowed and deep pelvis, additionally it was difficult to control the dorsal vein givne this. The puboprostatic ligament was incised where it inserted into the apex of the prostate and a plane between urethra and dorsal venous complex developed to expose the anterior urethral surface. The anterior wall of the urethra was transected with the cut setting a few millimeters distal to the apex of the prostate. The dorsal vein was ligated using two 3-0 V lock bilateral obturator and external iliac lymph node packets were carefully dissected after careful visualization of the hypogastric artery and obturator nerve. There was careful attention paid to hemostasis with judicious use of cautery. There was edematous reaction along the pelvic lymph nodes and significant fat surrounding the pelvic lymph nodes which made the dissection more challenging The urethrovesical anastomosis was performed . The posterior denovillers was reapproximated using 3-0 V lock. The bladder was very heavy given the significant amount of fat, and the bladder was not brought all the way down using the 3-0 V lock. A 9 and 9 inch 3-0 V-Lock suture was used to anastomose the urethra and bladder, starting at the 6:00 posterior position. Mucosa was secured in every stitch, to ensure a mucosa to mucosa anastomosis. There was difficulty placing the stiches given patient anatomy of narrowed deep pelvis and signifcant amount of fat. The stitch was regularly cinched and the anastomosis tightened. Care was taken to not violate the ureteral orifices. The Chung catheter was advanced, the bladder filled, and the anastomosis was tested, it was not watertight, leakage was noticed at 150 mL. The periumbilical fascia was closed with 1-0-PDS suture in running fashion. All ports were closed with kai. Sponge, instrument, and needle counts were correct at the end of the case x2. All specimens including prostate and lymph nodes were sent to pathology for diagnosis and will be available in a week. The patient tolerated the surgery well and without complication. He awoke without difficulty and was taken to the recovery room in stable condition
--- NOTE | 2019-08-07 21:53 | P.PN ---
Subjective Progress Note Date: 08/07/19 Principal diagnosis: Prostate Cancer POD #1 S/P robtoic prostatectomy No acute overnight event, pain controlled, tolerating diet Objective - Vital Signs Vital signs: Vital Signs Temp 98.8 F 08/07/19 20:32 Pulse 82 08/07/19 20:38 Resp 16 08/07/19 15:00 BP 114/74 08/07/19 20:32 Pulse Ox 95 08/07/19 20:32 Intake & Output 08/07/19 08/07/19 08/08/19 06:59 18:59 06:59 Intake Total 400 Output Total 1905 1495 Balance -1505 -1495 Intake: IV 400 Output: Drainage 30 95 Left 30 95 Urine 1625 1400 Estimated Blood Loss 250 Other: Voiding Method Indwelling Catheter Indwelling Catheter Indwelling Catheter - Constitutional General appearance: Present: no acute distress - Gastrointestinal General gastrointestinal: Present: distended (mild), soft. Absent: rigid - Genitourinary Genitourinary Comment(s): chung clear yellow urine - Psychiatric Psychiatric: Present: A&O x's 3 - Labs CBC & Chem 7: 08/07/19 18:40 08/07/19 18:40 Labs: Abnormal Lab Results - Last 24 Hours (Table) 08/06/19 08/07/19 08/07/19 Range/Units 22:39 05:22 05:22 WBC 13.7 H (3.8-10.6) k/uL RBC 3.98 L (4.30-5.90) m/uL Hgb 12.2 L (13.0-17.5) gm/dL Hct 34.7 L (39.0-53.0) % Neutrophils # 11.8 H (1.3-7.7) k/uL Lymphocytes # 0.9 L (1.0-4.8) k/uL Sodium 136 L (137-145) mmol/L BUN 26 H (9-20) mg/dL Glucose 158 H (74-99) mg/dL POC Glucose (mg/dL) 208 H (75-99) mg/dL 08/07/19 08/07/19 Range/Units 18:40 18:40 WBC 10.7 H (3.8-10.6) k/uL RBC 4.00 L (4.30-5.90) m/uL Hgb 12.1 L (13.0-17.5) gm/dL Hct 36.6 L (39.0-53.0) % Neutrophils # 8.7 H (1.3-7.7) k/uL Lymphocytes # (1.0-4.8) k/uL Sodium 135 L (137-145) mmol/L BUN 21 H (9-20) mg/dL Glucose 163 H (74-99) mg/dL POC Glucose (mg/dL) (75-99) mg/dL Assessment and Plan Assessment: 64 yo male with hx of loc 7 (4+3) prostate cancer. S/P robotic prostatectomy and Pelvic lymph node dissection Plan: -regular diet -ambulate -keep chung on traction -PM labs
[2019-08-08] MEDS: HEPARIN SODIUM,PORCINE 5,000 UNIT/ML 1 ML VIAL SQ SCH ×3 (00:29→17:06)
[2019-08-08] MEDS: LACTATED RINGERS 1,000 ML IV SCH (03:22)
[2019-08-08] MEDS: KETOROLAC 30 MG/ML 1 ML VIAL IVP SCH ×3 (05:32→17:03)
[2019-08-08] MEDS: amLODIPine 10 MG TAB PO SCH (08:09)
[2019-08-08] MEDS: OXYBUTYNIN CHLORIDE 5 MG TAB PO SCH ×3 (08:09→21:44)
[2019-08-08] MEDS: MONTELUKAST 10 MG TAB PO SCH (08:09)
[2019-08-08] MEDS: ATORVASTATIN 80 MG TAB PO SCH (08:09)
[2019-08-08] MEDS: D5-0.45% NACL WITH KCL 20MEQ/L 1,000 ML IV SCH ×2 (08:09→17:06)
[2019-08-08] MEDS: LORATADINE 10 MG TAB PO SCH (08:09)
[2019-08-08] MEDS: metFORMIN 500 MG TAB PO SCH ×2 (08:09→21:44)
--- NOTE | 2019-08-08 20:21 | P.PN ---
Subjective Principal diagnosis: Prostate Cancer POD #2 S/P robtoic prostatectomy No acute overnight event, pain controlled, tolerating diet, ambulating and passing flatus Objective - Vital Signs Vital signs: Vital Signs Temp 98.4 F 08/08/19 19:40 Pulse 87 08/08/19 19:46 Resp 15 08/08/19 14:33 BP 119/77 08/08/19 19:40 Pulse Ox 94 L 08/08/19 19:40 Intake & Output 08/08/19 08/08/19 08/09/19 06:59 18:59 06:59 Intake Total 20 Output Total 1600 750 Balance -1580 -750 Intake: Oral 20 Output: Drainage 50 50 Left 50 50 Urine 1550 700 Uretheral (Chung) 1550 Other: Voiding Method Indwelling Catheter Indwelling Catheter Indwelling Catheter - Gastrointestinal General gastrointestinal: Present: soft. Absent: distended, rigid - Integumentary Integumentary Comment(s): Incision w/kai: CDI - Labs CBC & Chem 7: 08/07/19 18:40 08/07/19 18:40 Labs: Abnormal Lab Results - Last 24 Hours (Table) 08/07/19 Range/Units 18:40 WBC 10.7 H (3.8-10.6) k/uL RBC 4.00 L (4.30-5.90) m/uL Hgb 12.1 L (13.0-17.5) gm/dL Hct 36.6 L (39.0-53.0) % Neutrophils # 8.7 H (1.3-7.7) k/uL Assessment and Plan Assessment: 64 yo male with hx of loc 7 (4+3) prostate cancer. S/P robotic prostatectomy and Pelvic lymph node dissection Plan: -regular diet -ambulate -chung off traction -HL IVF
[2019-08-09] MEDS: HEPARIN SODIUM,PORCINE 5,000 UNIT/ML 1 ML VIAL SQ SCH ×2 (00:34→09:39)
[2019-08-09] MEDS: KETOROLAC 30 MG/ML 1 ML VIAL IVP SCH ×3 (00:37→11:45)
[2019-08-09] MEDS: LACTATED RINGERS 1,000 ML IV SCH (06:17)
[2019-08-09 08:49] VITALS: BP 132/78; PULSE 86
[2019-08-09] MEDS: amLODIPine 10 MG TAB PO SCH (09:38)
[2019-08-09] MEDS: metFORMIN 500 MG TAB PO SCH (09:38)
[2019-08-09] MEDS: MONTELUKAST 10 MG TAB PO SCH (09:39)
[2019-08-09] MEDS: LORATADINE 10 MG TAB PO SCH (09:39)
[2019-08-09] MEDS: ATORVASTATIN 80 MG TAB PO SCH (09:39)
[2019-08-09] MEDS: OXYBUTYNIN CHLORIDE 5 MG TAB PO SCH (09:39)
[2019-08-09 09:43] VITALS: RESP 16; TEMP 98.3
--- NOTE | 2019-08-09 10:24 | P.DS ---
Providers Date of admission: 08/08/19 07:18 Expected date of discharge: 08/09/19 Attending physician: Adolfo Vaca MD Primary care physician: Alex Oden [facility] Course: The patient is a 64-year-old male with [place] 4+3 = 7 prostate cancer who was admitted on 08/06/2019 for elective robotically assisted laparoscopic prostatectomy. The patient underwent the procedure under general anesthesia on the date of admission. He had moderate bladder spasms postop which was treated with oxybutynin. He continued to have a small amount of bloody discharge around his urethral catheter and a moderate amount of Edmond-Guzman drainage over the n ext several days. He was discharged on 08/08 at which time he was tolerating a regular diet and fully ambulatory. His pain was minimal. Urine draining from his urethral catheter was clear. His pathology report was pending. Procedures: Robotically-assisted laparoscopic prostatectomy 08/06/2019 Patient Condition at Discharge: Good Plan - Discharge Summary Discharge Rx Participant: No New Discharge Prescriptions: No Action metFORMIN HCL [metFORMIN HCL ER] 1,000 mg PO BID amLODIPine [Norvasc] 5 mg PO DAILY Montelukast [Singulair] 10 mg PO DAILY Finasteride [Proscar] 5 mg PO DAILY Atorvastatin [Lipitor] 80 mg PO DAILY [place]-3 Fatty Acids/Fish Oil [Fish Oil 1,000 mg Softgel] 1 each PO DAILY Multivitamins, Thera [Multivitamin (formulary)] 1 tab PO DAILY Omeprazole Magnesium [PriLOSEC OTC] 20 mg PO DAILY Cinnamon Bark [Cinnamon] 1,000 mg PO DAILY L.acidoph,Paracasei, B.lactis [Probiotic] 1 each PO DAILY Cholecalciferol [Vitamin D3 (25 Mcg = 1000 Iu)] 1,250 unit PO TID Candesartan Cilexetil 32 mg PO DAILY Hydrochlorothiazide [Hydrodiuril] 25 mg PO DAILY Loratadine [Claritin] 10 mg PO DAILY guaiFENesin [Mucinex] 600 mg PO BID Discharge Medication List Atorvastatin [Lipitor] 80 mg PO DAILY 10/18/17 [History] Finasteride [Proscar] 5 mg PO DAILY 10/18/17 [History] Montelukast [Singulair] 10 mg PO DAILY 10/18/17 [History] amLODIPine [Norvasc] 5 mg PO DAILY 10/18/17 [History] metFORMIN HCL [metFORMIN HCL ER] 1,000 mg PO BID 10/18/17 [History] Cholecalciferol [Vitamin D3 (25 Mcg = 1000 Iu)] 1,250 unit PO TID 12/17/18 [History] Cinnamon Bark [Cinnamon] 1,000 mg PO DAILY 12/17/18 [History] L.acidoph,Paracasei, B.lactis [Probiotic] 1 each PO DAILY 12/17/18 [History] Multivitamins, Thera [Multivitamin (formulary)] 1 tab PO DAILY 12/17/18 [History] [place]-3 Fatty Acids/Fish Oil [Fish Oil 1,000 mg Softgel] 1 each PO DAILY 12/17/18 [History] Omeprazole Magnesium [PriLOSEC OTC] 20 mg PO DAILY 12/17/18 [History] Candesartan Cilexetil 32 mg PO DAILY 08/04/19 [History] Hydrochlorothiazide [Hydrodiuril] 25 mg PO DAILY 08/04/19 [History] Loratadine [Claritin] 10 mg PO DAILY 08/04/19 [History] guaiFENesin [Mucinex] 600 mg PO BID 08/04/19 [History] Follow up Appointment(s)/Referral(s): Adolfo Vaca MD [STAFF PHYSICIAN] - 08/12/19 10:00 am Pending Studies Pending Results: Pathology report
== END 2019-08-09 12:18 | disposition home or self-care (01) ==
LOC: OR 11:31 → 4SSUR 22:35 → OR 08-08 07:18
PROVIDERS: ADMIT Urology; ATTEND Urology
DX: C61 Malignant neoplasm of prostate (principal); E11.9 Type 2 diabetes mellitus without complications; E78.5 Hyperlipidemia, unspecified; I10 Essential (primary) hypertension; N32.89 Other specified disorders of bladder; G47.33 Obstructive sleep apnea (adult) (pediatric); K21.9 Gastro-esophageal reflux disease without esophagitis; G43.909 Migraine, unspecified, not intractable, without status migrainosus; J30.2 Other seasonal allergic rhinitis; Z85.828 Personal history of other malignant neoplasm of skin; Z79.899 Other long term (current) drug therapy; Z79.84 Long term (current) use of oral hypoglycemic drugs; Z79.82 Long term (current) use of aspirin; Z79.891 Long term (current) use of opiate analgesic; Z91.048 Other nonmedicinal substance allergy status; Z80.9 Family history of malignant neoplasm, unspecified
CPT/HCPCS: 86900; 86901; 88305; 80048; 85025; 86850; 88307; 88309; 55866; 38571; G0378 ×2; J2250; J1644 ×4; J1100; J2710; J0690 ×2; J2405; J2001; J3010; J1885; J1170; J2370; J0330; J2704

== ENCOUNTER → 2019-08-18 | Outpatient (CLI) | payer MEDICARE ==
--- NOTE | 2019-08-18 09:53 | FL ---
EXAMINATION TYPE: FL cystogram DATE OF EXAM: 08/18/2019 COMPARISON: NONE HISTORY: History of prostatectomy for cancer August 07, 2019 with pain rule out leak. TECHNIQUE: Fluoroscopic-assisted cystogram. FINDINGS: Fluoroscopic guidance was provided during retrograde cystogram procedure performed by Dr. Gurrola. A total of 44 seconds of fluoroscopic time was utilized during the procedure and 9 spot image s are saved to PACS. A total of 200 cc of Cystografin was utilized. Initial architectural technologist image shows some pelvic phleboliths along with a few overlying skin kai. Holguin cath eter is in place upon arrival. Initial filling bladder shows trabeculation and lobulation with improv ed distention after continued filling. 200 cc contrast filled into the bladder as instructed by urolo gist. No evidence of contrast extravasation to suggest leak during real-time scanning or postprocedur e bordering which shows tiny residual contrast. Patient tolerated procedure well without any immediate complication. Patient left the hospital in sta ble condition shortly after procedure was completed. IMPRESSION: No fluoroscopic evidence for bladder leak.
== END | disposition home or self-care (01) ==
LOC: RADFLMAIN 08:39
PROVIDERS: ATTEND Urology
DX: C61 Malignant neoplasm of prostate (principal); J30.89 Other allergic rhinitis; Z88.8 Allergy status to other drugs, medicaments and biological substances
CPT/HCPCS: 74430

== ENCOUNTER → 2020-01-05 | Outpatient (CLI) | payer MEDICARE ==
--- NOTE | 2020-01-05 13:15 | CT ---
EXAMINATION TYPE: CT abdomen pelvis w con DATE OF EXAM: 01/05/2020 COMPARISON: None. HISTORY: prostate CA CT DLP: 2595.1 mGycm, Automated Exposure Control for Dose Reduction was Utilized. CONTRAST: CT scan of the abdomen and pelvis is performed with oral and with IV Contrast, patient injected with 100 mL of Isovue 300. FINDINGS: LUNG BASES: Calcification level of the aortic valve and to lesser degree mitral valve. LIVER/GB: No significant abnormality is appreciated. PANCREAS: No significant abnormality is seen. SPLEEN: No significant abnormality is seen. ADRENALS: No significant abnormality is seen. KIDNEYS: Symmetric cortical medullary uptake and excretion without concerning solid or cystic renal m ass or hydronephrosis seen bilaterally. Mild wall thickening of bladder presumed product of prior und erlying enlarged prostate gland. BOWEL: Oral contrast extends to the level of the left colon. No suspicious small or large bowel dila tation. Incidental normal-appearing appendix from cecum right lower quadrant. PROSTATE/SEMINAL VESICLES: Prostate gland not well seen and may be surgically absent. No surgical cli ps noted. Scattered bilateral pelvic phleboliths. LYMPH NODES: No greater than 1cm abdominal or pelvic lymph nodes are appreciated.. Prominent but sub centimeter lymph nodes in the retroperitoneum and along iliac chain vessels. For reference right exte rnal iliac chain lymph node measures 1.3 x 0.8 cm axial image 87. Similar sized lymph node noted on t he left. No definitive greater than 1 cm lymph nodes. OSSEOUS STRUCTURES: Mild to moderate disc space narrowing L5-S1 level. Facet arthropathy in the lower lumbar spine. OTHER: No significant additional abnormality is seen. IMPRESSION: No suspicious mass or greater than 1 cm adenopathy to suggest metastatic disease.
--- NOTE | 2020-01-05 14:44 | NM ---
EXAMINATION TYPE: NM bone scan whole body DATE OF EXAM: 01/05/2020 COMPARISON: CT abdomen and pelvis earlier today HISTORY: Prostate cancer. Delayed whole-body scanning was performed following the injection of 22.5 mCi Tc 99m MDP. Images acq uired 3 hours post injection. Whole body images anterior posterior projection along with oblique imag es of the bilateral knees along with abdomen and pelvis. FINDINGS: No suspicious increased radiotracer uptake to suggest metastatic disease to the bone or other suspici ous abnormality. Contamination or urine leak is present below the bladder. Increased radiotracer upta ke surrounding the right knee prosthesis is nonspecific. IMPRESSION: As above.
== END | disposition home or self-care (01) ==
LOC: RADNMMAIN 10:04
PROVIDERS: ATTEND Urology
DX: C61 Malignant neoplasm of prostate (principal); Z91.048 Other nonmedicinal substance allergy status; Z91.038 Other insect allergy status
CPT/HCPCS: 82565; 84520; 74177; 78306; 36415; A9503; Q9967

== ENCOUNTER → 2020-10-29 | Outpatient (CLI) | payer MEDICARE ==
--- NOTE | 2020-10-29 08:53 | US ---
EXAMINATION TYPE: US gallbladder DATE OF EXAM: 10/29/2020 COMPARISON: CT dated 01/05/2020 CLINICAL HISTORY: R19.5 OTHER FECAL ABNORMALITIES. Patient stated has normal bowel movements in morni ng and loose stools at night; has completed radiation therapy August 2020 for prostate CA; diabetic EXAM MEASUREMENTS: Liver Length: 20.3 cm Gallbladder Wall: 0.25 cm CBD: 0.5 cm Right Kidney: 11.5 x 6.0 x 5.6 cm Pancreas: hyperechoic in its visualized portions Liver: enlarged; mildly attenuated posteriorly Gallbladder: wnl Evidence for sonographic Owen's sign: no CBD: wnl Right Kidney: No hydronephrosis or masses seen IMPRESSION: Correlate for hepatic steatosis, hepatocellular disease, limited scan
== END | disposition home or self-care (01) ==
LOC: RADUSWWP 07:30
PROVIDERS: ATTEND Family Medicine
DX: C61 Malignant neoplasm of prostate (principal); R19.5 Other fecal abnormalities; R16.0 Hepatomegaly, not elsewhere classified
CPT/HCPCS: 76705

== ENCOUNTER → 2021-01-25 | Outpatient (CLI) | payer MEDICARE | END | disposition home or self-care (01) | LOC: LABWHC1 10:15 | PROVIDERS: ATTEND Nurse Practitioner Family | DX: Z88.8 Allergy status to other drugs, medicaments and biological substances (principal) | CPT/HCPCS: 36415 ==

== ENCOUNTER 2021-07-05 06:07 | Day surgery (SDC) | payer MEDICARE ==
[2021-07-01 12:00] VITALS: BMI 30.3
[~2021-07-05 06:07] MED LIST changes: -DEXAMETHASONE SOD PHOSPHATE 10 MG/ML 1 ML VIAL IV ONE; -HYDROmorphone 0.5 MG/0.5 ML SYRINGE IVP PRN; +LACTATED RINGERS 1,000 ML IV SCH; -ONDANSETRON 4 MG/2 ML VIAL IVP ONE
[2021-07-05 06:40] VITALS: RESP 16; TEMP 97.5
[2021-07-05 06:50] LABS: Glucose,Whole Blood 115 mg/dL (75-99)
[2021-07-05] MEDS ORDERED: PROPOFOL 10 MG/ML 20 ML VIAL IV ONE (07:03)
--- NOTE | 2021-07-05 07:25 | P.PCN ---
Date of Procedure: 07/05/21 Procedure(s) Performed: BRIEF HISTORY: Patient is a 66-year-old pleasant white male scheduled for an elective colonoscopy as a part of evaluation of prior history of colon polyps. Last colonoscopy was 3 years ago. Lately has been having intermittent diarrhea. PROCEDURE PERFORMED: Colonoscopy with snare polypectomy PREOPERATIVE DIAGNOSIS: 5 mm descending colon polyp status post polypectomy. IV sedation per Anesthesia. PROCEDURE: After informed consent was obtained, the patient, was brought into the endoscopy unit. IV sedation was administered by Anesthesia under continuous monitoring. Digital rectal examination was normal. Initially the Olympus CF-160 flexible video colonoscope was then inserted in the rectum, gradually advanced into the cecum without any difficulty. Careful examination was performed as the scope was gradually being withdrawn. Ileocecal valve and the appendiceal orifice were visualized and appeared normal. Prep was excellent. Mucosa of the cecum, ascending colon, transverse colon, appeared normal. In the descending colon there was a 5 limited polyp that was moved by snare polypectomy. Rest of the descending colon, sigmoid colon, and rectum appeared normal. In the distal rectum there was scattered telangiectasia suspicious for radiation proctitis. No bleeding identified. Retroflexion was performed in the rectum and no lesions were seen. The patient tolerated the procedure well. IMPRESSION: 5 mm descending colon polyp status post polypectomy Mild radiation proctitis RECOMMENDATIONS: Findings of this examination were discussed with the patient as well as his family. He was advised to follow with the biopsy result. If the biopsy is adenoma he can have a repeat colonoscopy in 5 years..
[2021-07-05 07:27] VITALS: PULSE 66
[2021-07-05 07:40] VITALS: BP 126/82
== END 2021-07-05 08:12 | disposition home or self-care (01) ==
LOC: ORWHC2ENDO 06:07
PROVIDERS: ATTEND Internal Medicine Gastroenterology
DX: D12.4 Benign neoplasm of descending colon (principal); K62.7 Radiation proctitis; Z86.010 Personal history of colon polyps; I10 Essential (primary) hypertension; E78.5 Hyperlipidemia, unspecified; G47.33 Obstructive sleep apnea (adult) (pediatric); E11.9 Type 2 diabetes mellitus without complications; K21.9 Gastro-esophageal reflux disease without esophagitis; Z79.84 Long term (current) use of oral hypoglycemic drugs; Z79.899 Other long term (current) drug therapy; Y84.2 Radiological procedure and radiotherapy as the cause of abnormal reaction of the patient, or of later complication, without mention of misadventure at the time of the procedure
CPT/HCPCS: 45385; 88305; J2704

== ENCOUNTER → 2021-11-22 | Outpatient (CLI) | payer MEDICARE ==
[~2021-11-22] MED LIST changes: +BEBTELOVIMAB (EUA) 175 MG/2 ML VIAL IV ONE; -LACTATED RINGERS 1,000 ML IV SCH; -LIDOCAINE 1% (10MG/ML) FOR IV START INTRADERMA PRN; +SODIUM CHLORIDE 0.9% 500 ML 500 ML in EMPTY BAG 1 BAG IV PRN
[2021-11-22 13:50] VITALS: RESP 16; TEMP 97.3
[2021-11-22 14:29] VITALS: BP 128/82; PULSE 74
== END ==
LOC: PROCWHC3 12:47
PROVIDERS: ATTEND Nurse Practitioner Adult Health
DX: U07.1 COVID-19 (principal); E66.9 Obesity, unspecified; Z88.9 Allergy status to unspecified drugs, medicaments and biological substances; Z91.018 Allergy to other foods; Z91.09 Other allergy status, other than to drugs and biological substances; Z88.8 Allergy status to other drugs, medicaments and biological substances
CPT/HCPCS: Q0222; M0222

== ENCOUNTER → 2022-04-04 | Outpatient (CLI) | payer MEDICARE ==
--- NOTE | 2022-04-04 09:49 | US ---
EXAMINATION TYPE: US abdomen complete DATE OF EXAM: 04/04/2022 COMPARISON: Gallbladder ultrasound 10/29/2020 CLINICAL HISTORY: R10.13 EPIGASTRIC PAIN. TECHNIQUE: Multiple sonographic images of the abdomen are obtained. FINDINGS: EXAM MEASUREMENTS: Liver Length: 19.0 cm Gallbladder Wall: 0.3 cm CBD: 0.3 cm Spleen: 11.3 cm Right Kidney: 12.1 x 5.1 cm Left Kidney: 11.4 x 4.9 cm Pancreas: wnl Liver: Increased echogenicity to the liver without suspicious mass. Gallbladder: Layering biliary sludge in the gallbladder lumen. No evidence for pericholecystic fluid . Evidence for sonographic Owen's sign: No CBD: wnl Spleen: wnl Right Kidney: wnl Left Kidney: wnl Upper IVC: wnl Abd Aorta: wnl IMPRESSION: 1. Biliary sludge. 2. Hepatic steatosis.
== END | disposition home or self-care (01) ==
LOC: RADUSWWP 08:32
PROVIDERS: ATTEND Family Medicine
DX: K76.0 Fatty (change of) liver, not elsewhere classified (principal); K83.9 Disease of biliary tract, unspecified; R10.13 Epigastric pain
CPT/HCPCS: 76700

== ENCOUNTER → 2023-02-07 | Outpatient (CLI) | payer MEDICARE | END | disposition home or self-care (01) | LOC: LABWHC1 08:18 | PROVIDERS: ATTEND Radiology Radiation Oncology | DX: C61 Malignant neoplasm of prostate (principal); R35.1 Nocturia; Z92.3 Personal history of irradiation; Z90.79 Acquired absence of other genital organ(s) | CPT/HCPCS: 36415; 84153 ==

== ENCOUNTER → 2023-03-16 | Outpatient (CLI) | payer MEDICARE ==
--- NOTE | 2023-03-17 13:16 | PE ---
EXAMINATION TYPE: PET CT fusion skull to thigh DATE OF EXAM: 03/16/2023 CLINICAL INDICATION:Male, 68 years old with history of C61; TECHNIQUE: Following the intravenous administration of 6.09 mCi of Ga-68 Illuccix (PSMA), whole bod y images are performed from the skull base to the midthigh. Images are reviewed on the computer in t he coronal, axial, and sagittal planes. Reconstructed rotating images are created on independent wor kstation and reviewed on the computer. A non-contrast CT is performed in conjunction with the PET s can. CT DLP: 1004 mGycm, Automated exposure control for dose reduction was used. COMPARISON: CT 01/05/2020, PET/CT None, FINDINGS: Mediastinal SUV mean is 1.5. Hepatic parenchyma SUV mean is 7.3. SKULL BASE AND NECK: No suspicious radiotracer activity. CHEST, MEDIASTINUM, AND HILAR REGION: No suspicious radiotracer activity. ABDOMEN AND PELVIS: Abnormal uptake within the left pelvic sidewall lymph node max SUV 25.5 measuring 7 mm in short axis. Series 3 image 233. The prostate gland appears surgically absent. MUSCULOSKELETAL STRUCTURES: No suspicious radiotracer activity. OTHER CT: The heart is mildly enlarged for size. There is aortic valve calcifications. Mild gynecomas tia changes bilaterally. IMPRESSION: Left pelvic sidewall lymph node with increased metabolic activity. No other lesions identified at thi s time.
== END | disposition home or self-care (01) ==
LOC: RADPETMAIN 08:51
PROVIDERS: ATTEND Radiology Radiation Oncology
DX: C61 Malignant neoplasm of prostate (principal)
CPT/HCPCS: 78815; A9596

== ENCOUNTER → 2023-06-15 | Outpatient (CLI) | payer MEDICARE | END | disposition home or self-care (01) | LOC: LABWHC1 11:28 | PROVIDERS: ATTEND Radiology Radiation Oncology | DX: C61 Malignant neoplasm of prostate (principal); R35.1 Nocturia; Z92.3 Personal history of irradiation; Z90.79 Acquired absence of other genital organ(s) | CPT/HCPCS: 36415; 84153 ==

== ENCOUNTER → 2023-10-08 | Outpatient (CLI) | payer MEDICARE ==
--- NOTE | 2023-11-01 13:45 | CT ---
EXAMINATION TYPE: CT abdomen pelvis w con CT DLP: 1787 mGycm, Automated exposure control for dose reduction was used. DATE OF EXAM: 10/08/2023 COMPARISON: THIS EXAM WAS READ DURING PACS DOWNTIME, NO PRIORS AVAILABLE. CLINICAL INDICATION: Enlarged lymph node in pelvis, prostate cancer [id number] DLP:1787 scanned by SLS/MR TECHNIQUE: Axial CT abdomen pelvis w con;Sagittal and coronal reformats were created on a separate wo rkstation. Contrast used: mL of , (none if empty) Oral contrast used: (none if empty) FINDINGS: LOWER CHEST: Aortic valve calcifications. ABDOMEN LIVER: Unremarkable GALLBLADDER AND BILE DUCTS: Unremarkable. PANCREAS: Unremarkable. SPLEEN: Unremarkable. ADRENAL GLANDS: Unremarkable. KIDNEYS AND URETERS: No evidence of hydronephrosis or renal calculus. The ureters are unremarkable. PELVIS BLADDER: Unremarkable REPRODUCTIVE: Surgically absent prostate gland. No suspicious soft tissue deposits or enlarged lymph nodes which are greater than 1.0 cm in short axis identified. ABDOMEN & PELVIS STOMACH AND BOWEL: No evidence of bowel obstruction. The appendix is normal. Moderate amount stool th roughout the colon. PERITONEUM/RETROPERITONEUM: No evidence of pneumoperitoneum or free fluid. VASCULATURE: No evidence of aortic aneurysm. MUSCULOSKELETAL: No acute osseous abnormalities. Moderate disc degeneration changes are present throu ghout the thoracolumbar spine. LYMPH NODES: No gross evidence for lymphadenopathy. SOFT TISSUE/ABDOMINAL WALL: Unremarkable IMPRESSION: 1. Prostate gland is surgically absent, No lymphadenopathy identified. 2. Severe aortic valve calcifications.
== END | disposition home or self-care (01) ==
LOC: RADCTMAIN 11:48
PROVIDERS: ATTEND Radiology Radiation Oncology
DX: C61 Malignant neoplasm of prostate (principal); R35.1 Nocturia; Z92.3 Personal history of irradiation; Z90.79 Acquired absence of other genital organ(s); I35.8 Other nonrheumatic aortic valve disorders
CPT/HCPCS: 82565; 84520; 74177; 36415; Q9967